=== PATIENT | male | born 1960 | race Caucasian/White ===

== ENCOUNTER → 2020-01-31 13:46 | Outpatient (CLI) | payer BC, SELFPAY ==
--- NOTE | ~2020-01-31 | US_ITS ---
EXAMINATION: US scrotum doppler DATE: 01/31/2020 14:16 INDICATION: Scrotal varices. Bloody in underwear with normal urine. TECHNIQUE: Testicular sonogram utilizing grayscale and Doppler COMPARISON: None. FINDINGS: The right testis measures 4.1 x 2.5 x 3.0 cm. The left testis measures 4.4 x 2.3 x 2.8 cm. Symmetric normal grayscale appearance to both testes. There is normal vascular flow to both testes. The right e pididymis is normal with normal vascular flow. 7 mm anechoic epididymal cyst at the head of the left epididymis. The left epididymis is otherwise normal with normal vascular flow. Bilateral varicoceles, left greater than right with vessels measuring up to 3 mm in maximal diameter on the left and up to 2.5 mm in diameter on the right which augment with Valsalva. Minimal right hydrocele. IMPRESSION: 1. 7 mm left epididymal cyst. Otherwise normal bilateral testes and epididymides. 2. Bilateral varicoceles, left greater than right and minimal right hydrocele. Reviewed, dictated and finalized at location . N MARKETER IMPRESSION: 1. 7 mm left epididymal cyst. Otherwise normal bilateral testes and epididymid es. 2. Bilateral varicoceles, left greater than right and minimal right hydrocele.
== END ==
PROVIDERS: PCP Family Medicine; Visit Provider Physician Assistant
DX: I86.1 Scrotal varices (principal); N50.3 Cyst of epididymis
CPT/HCPCS: 76870; 93976

== ENCOUNTER 2021-08-08 08:30 | Outpatient (CLI) | payer BC, SELFPAY ==
--- NOTE | ~2021-08-08 | XR_ITS ---
EXAMINATION: XR chest 2V DATE: 08/08/2021 09:06 INDICATION: Personal history of COVID-19 pneumonia. TECHNIQUE: Frontal and lateral views of the chest were obtained. COMPARISON: Chest 2 views 12/04/2011 FINDINGS: There is no pneumonia, pleural effusion, or pneumothorax. The heart size is normal. IMPRESSION: 1. Normal lungs. Reviewed, dictated and finalized at location A. IMPRESSION: 1. Normal lungs.
== END 2021-08-08 08:31 | disposition home or self-care (01) ==
LOC: ANHIMG 08:50
PROVIDERS: PCP Family Medicine; Visit Provider Family Medicine
DX: U07.1 COVID-19 (principal)
CPT/HCPCS: 71046

== ENCOUNTER 2023-03-06 01:56 | Day surgery (SDC) | payer OTHER, SELFPAY ==
[2023-02-17 15:48] VITALS: BMI 19.3
--- NOTE | 2023-03-04 08:22 | SUR.PREOP ---
Patient called regarding upcoming procedure. Message left on patient's voicemail regarding appointment times.
--- NOTE | 2023-03-05 09:04 | P.PNAN_ITS ---
Anes - Initial Pre Proc Eval Procedure: Operation Date: 03/06/23 09:00 Proposed Procedures p Screening Colonoscopy - Marcus Murphy MD Date/Time: 03/05/23 09:04 Surgeon: Marcus Murphy MD Pre Op Diagnosis: neoplasm screening Patient Data Age: 62 Gender: M Height: 1.78 m Weight: 61 kg Allergies Allergy/AdvReac Type Severity Reaction Status Date / Time No Known Allergies Allergy Verified 03/06/23 08:10 Home Medications Medication Instructions Recorded Confirmed Type buspirone 5 mg tablet 5 mg PO BID #60 tabs 11/13/22 03/06/23 Rx Patient hx anesthesia problems: none Family hx anesthesia problems: none Results Review: All pre-operative results and documents have been reviewed as part of the pre- operative evaluation. [facility] Past Medical History Medical History (Updated 03/05/23 @ 09:05 by Mendez Walker DO) Anxiety Hyperlipidemia Family History Family History Mother Hypertension Father Family history of lymphoma, Onset Age: 70 Patient's father is Grandparent Diabetes mellitus Social History Social History (Updated 11/13/22 @ 10:33 by Lara Wang) Social History: Smoking status: Never smoker Second hand tobacco smoke exposure: No Alcohol intake: current Drinks per week: 1 Alcohol use details: Socially Substance use: never Substance use type: does not use Lack of Transportation: No Lack of Food: Never True Current Housing: I Have Housing Concerned About Future Housing: No Difficulty Paying Gas/Electric Bills: No Difficulty Paying for Meds: No Currently Unemployed: YES Education: Decline to Answer Difficulty w/ Childcare or Family Care: No Living arrangements: with family Occupation/Education: retired Additional occupation/education comments: 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 Gender identity (if verbalized by the patient): Male Sexual Orientation (if Verbalized by the Patient): Straight or Heterosexual Spiritual care concerns: No Anes - Eval Final PreProcedure Day of Procedure 03/05/23 09:04 Patient weight: normal Heart: regular rate and rhythm Lungs: clear to auscultation and normal air movement Airway: Mallampati scale class II Neurological: alert and oriented Last oral intake: >/= 8 hours ASA classification: II Emergent: no Anesthetic plan: proceed Anesthesia type and monitoring: general GIVS and standard monitoring Results Review: All pre-operative results and documents have been reviewed as part of the pre- operative evaluation. Informed Consent: The patient's anesthetic plan and its attendant risks and benefits were discussed with the patient/family/POA. Questions were solicited and answers provided to the satisfaction of the patient/family/POA.
--- NOTE | 2023-03-05 11:38 | P.HP_ITS ---
History of Present Illness History of Present Illness Consent: Risks, benefits, and alternatives have been discussed and questions answered. Patient agrees to proceed with procedure. Chief complaint: neoplasm screening Narrative: Walter Biggs is a 62 year old male who was referred for colon cancer screening. His last colonoscopy which was 10 years ago was unremarkable. Review of Systems Review of Systems: All systems reviewed & are unremarkable except as noted in HPI and below PMFSH Past Medical History Medical History Anxiety Hyperlipidemia Family History Family History Mother Hypertension Father Family history of lymphoma, Onset Age: 70 Patient's father is Grandparent Diabetes mellitus Social History Social History Social History: Smoking status: Never smoker Second hand tobacco smoke exposure: No Alcohol intake: current Drinks per week: 1 Alcohol use details: Socially Substance use: never Substance use type: does not use Lack of Transportation: No Lack of Food: Never True Current Housing: I Have Housing Concerned About Future Housing: No Difficulty Paying Gas/Electric Bills: No Difficulty Paying for Meds: No Currently Unemployed: YES Education: Decline to Answer Difficulty w/ Childcare or Family Care: No Living arrangements: with family Occupation/Education: retired Additional occupation/education comments: 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 Gender identity (if verbalized by the patient): Male Sexual Orientation (if Verbalized by the Patient): Straight or Heterosexual Spiritual care concerns: No Meds Home Medications and Allergies Home Medications Medication Instructions Recorded Confirmed Type buspirone 5 mg tablet 5 mg PO BID #60 tabs 11/13/22 03/06/23 Rx Allergies Allergy/AdvReac Type Severity Reaction Status Date / Time No Known Allergies Allergy Verified 03/06/23 08:10 Exam Const: General: alert Orientation/consciousness: patient oriented x3 Resp: Auscultation: clear to auscultation bilaterally Cardio: Rhythm: regular rhythm GI: GI Palp: Yes Soft to palpation and No Tenderness to palpation present (GI) Neuro: General: patient oriented x3 Assessment and Plan Assessment and plan (1) Colon cancer screening: Code(s): Z12.11 - Encounter for screening for malignant neoplasm of colon Status: Acute Assessment and Plan: Colonoscopy with possible biopsy or polypectomy or cautery or injection of substances.
[2023-03-06 08:11] VITALS: BP 125/104; PULSE 106; RESP 18; TEMP 36.6; O2SAT 100; BMI 18.3
[2023-03-06] MEDS: LACTATED RINGERS 1,000 ML 150 ML IV CONT (08:19)
[2023-03-06 09:15] VITALS: BP 94/62; PULSE 86; RESP 18; O2SAT 99
[2023-03-06 09:25] VITALS: BP 101/67; PULSE 87; RESP 20; O2SAT 100
[2023-03-06 09:35] VITALS: BP 110/75; PULSE 88; RESP 19; O2SAT 100
== END 2023-03-06 09:48 | disposition home or self-care (01) ==
PROVIDERS: PCP Family Medicine; Visit Provider Internal Medicine Gastroenterology
PROC: 0DJD8ZZ Inspection of Lower Intestinal Tract, Via Natural or Artificial Opening Endoscopic (ICD-10-PCS; CPT 45378; principal; 2023-03-06 09:00)
DX: Z12.11 Encounter for screening for malignant neoplasm of colon (principal); K57.30 Diverticulosis of large intestine without perforation or abscess without bleeding; K64.8 Other hemorrhoids; F41.9 Anxiety disorder, unspecified
CPT/HCPCS: 45378; J2704; J7120

== ENCOUNTER 2024-02-15 15:32 | Outpatient (CLI) | payer OTHER, SELFPAY ==
--- NOTE | ~2024-02-15 | XR_ITS ---
EXAMINATION: XR wrist LT 2V DATE: 02/15/2024 15:41 INDICATION: Unspecified fall, initial encounter. Left wrist pain. TECHNIQUE: 2 views of left wrist were obtained. COMPARISON: None. FINDINGS: Bone alignment is normal. There is a possible nondisplaced avulsion fracture of dorsal pole of triquetrum. There is mild osteoarthritis of first carpometacarpal joint. IMPRESSION: 1. Possible nondisplaced avulsion fracture of dorsal pole of triquetrum. 2. Mild osteoarthritis of first carpometacarpal joint. Reviewed, dictated and finalized at location A. INTERN
== END 2024-02-15 15:33 | disposition home or self-care (01) ==
LOC: MICIMG 15:33
PROVIDERS: PCP Physician Assistant; Visit Provider Physician Assistant
DX: M18.12 Unilateral primary osteoarthritis of first carpometacarpal joint, left hand (principal); M25.532 Pain in left wrist; W19.XXXA Unspecified fall, initial encounter
CPT/HCPCS: 73100

== ENCOUNTER 2024-12-03 10:46 | Emergency (ER) | payer OTHER, SELFPAY ==
--- OUTSIDE RECORDS SUMMARY | 2013-06-29 12:30 | XMS_ITS | Continuity of Care Document ---
Author Organization [facility] Address [address] [place] [address] [place] [phone] Phone Care Team Providers Care Director Of Instruction Name Role Phone Adwoa Stokes DPT Unavailable Unavailable Procedures Procedure Date PT RE-EVALUATION THERAPEUTIC EXERCISES NEUROMUSCULAR RE-ED MANUAL THERAPY HOT/COLD PACK ELECTRIC STIMULATION UNATT THERAPEUTIC EXERCISES NEUROMUSCULAR RE-ED MANUAL THERAPY HOT/COLD PACK THERAPEUTIC EXERCISES NEUROMUSCULAR RE-ED MANUAL THERAPY HOT/COLD PACK THERAPEUTIC EXERCISES NEUROMUSCULAR RE-ED MANUAL THERAPY HOT/COLD PACK ELECTRIC STIMULATION UNA THERAPEUTIC EXERCISES NEUROMUSCULAR RE-ED MANUAL THERAPY HOT/COLD PACK ELECTRIC STIMULATION UNATT THERAPEUTIC EXERCISES NEUROMUSCULAR RE-ED MANUAL THERAPY HOT/COLD PACK ELECTRIC STIMULATION UNATT THERAPEUTIC EXERCISES MANUAL THERAPY HOT/COLD PACK ELECTRIC STIMULATION UNATT THERAPEUTIC EXERCISES NEUROMUSCULAR RE-ED MANUAL THERAPY HOT/COLD PACK THERAPEUTIC EXERCISES NEUROMUSCULAR RE-ED MANUAL THERAPY HOT/COLD PACK ELECTRIC STIMULATION UNATT THERAPEUTIC EXERCISES NEUROMUSCULAR RE-ED MANUAL THERAPY HOT/COLD PACK ELECTRIC STIMULATION UNATT THERAPEUTIC EXERCISES MANUAL THERAPY HOT/COLD PACK ELECTRIC STIMULATION UNATT THERAPEUTIC EXERCISES MANUAL THERAPY HOT/COLD PACK ELECTRIC STIMULATION UNATT THERAPEUTIC EXERCISES NEUROMUSCULAR RE-ED MANUAL THERAPY HOT/COLD PACK ELECTRIC STIMULATION UNATT THERAPEUTIC EXERCISES MANUAL THERAPY HOT/COLD PACK ELECTRIC STIMULATION UNATT PT EVALUATION THERAPEUTIC EXERCISES MANUAL THERAPY HOT/COLD PACK ELECTRIC STIMULATION UNATT Advance Directives Directive Yes / No Effective Date File Name No Information Encounters Encounter Description Practice Location Reason(s) For Visit Diagnoses Date Provider Providers Copied on Encounter [address], [id number], tel:[phone] [place] No Information 4 Stokes Adwoa. [address] [facility], [address], [facility], . tel: [phone] Referring Provider: Dianelys lane, [address] [facility] [address], [facility]. tel:[phone] [address], [place], [id number], tel:[phone] [place] No Information 4 Stokes Adwoa. [address] [facility], [facility] [address], [place], [facility], . tel:[phone] Referring Provider: Dianelys lane, [address] [facility] [address], [place], [facility]. tel:[phone] [address], [place], [place], [id number], tel: [phone] [place] No Information Apr-1 1-201 4 Juany Eaton. [address] [place] [address], [address], [place], [facility], . tel: [phone] Referring Provider: Dianelys lane, [address], [place], [place], [facility]. tel:[phone] [address], [place], [place], [id number], tel:[phone] [place] No Information Apr-0 8-201 4 Stokes Adwoa. [address] [place] [address], [address], [place], [facility], . tel: [phone] Referring Provider: Dianelys lane, [address], [place], [place], [facility]. tel:[phone] [address], [place], [place], [id number], tel:[phone] [place] No Information Apr-0 4-201 4 Juany Eaton. [address] [place] [address], [address], [place], [facility], . tel: [phone] Referring Provider: Dianelys lane, [address], [place], [place], [facility]. tel:[phone], [place], [id number], tel:[phone] [place] No Information Apr-0 2-201 4 Stokes Adwoa. [address] [place] [address], [address], [place], [facility], . tel: [phone] Referring Provider: Dianelys lane, [address], [place], [address]. tel:[phone], [place], [id number], tel:[phone] [place] No Information Mar-2 7-201 4 Juany Angelito. [address] [place] [address], [address], [place], [facility], . tel: [phone] Referring Provider: Dianelys lane, [address], [place], [address]. tel:[phone] [address], [place], [place], [id number], tel:[phone] [place] No Information Mar-2 5-201 4 Juany Angelito. [address] [place] [address], [address], [place], [facility], . tel: [phone] Referring Provider: Dianelys lane, [address], [place], [address]. tel:[phone], [place], [place], [id number], tel:[phone] [place] No Information Mar-1 9-201 4 Stokes Adwoa. [address] [place] [address], [address], [place], [facility], [place]. tel: [phone] Referring Provider: Dianelys lane, [address], [place], [address]. tel:[phone] [address], [place], [place], [id number], tel:[phone] [place] No Information Mar-1 8-201 4 Stokes Adwoa. [address] [place] [address], [address], [place], [facility], . tel: [phone] Referring Provider: Dianelys lane, [address], [place], [address]. tel:[phone] [address], [place], [place], [id number], tel:[phone] [place] No Information Mar-1 7-201 4 Stkoes Adwoa. [address] [place] [address], [address], [place], [facility], [place]. tel:[phone] Referring Provider: Dianelys lane, [address] [place] [address] [address], [place], [address]. tel:[phone], [place], [place], [id number], [place] tel:[phone] [place] No Information Mar-1 4-201 4 Stokes Adwoa. [address] [place] [address], [address], [place], [facility], [place]. tel:[phone] Referring Provider: Dianelys lane, [address] [place] [address] [address], [place], [address]. tel:[phone], [place], [id number], [place] tel:[phone] [place] No Information Mar-1 2-201 4 Stokes Adwoa. [address] [place] [address], [address], [place], [facility], [place]. tel:[phone] Referring Provider: Dianelys lane, [address] [place] [address] [address], [place], [address]. tel:[phone], [place], [place], [id number], [place] tel:[phone] [place] No Information Mar-1 0-201 4 Stokes Adwoa. [address] [place] [address], [address], [place], [facility], [place]. tel:[phone] Referring Provider: Dianelys lane, [address] [place] [address] [address], [place], [address]. tel:[phone], [place], [place], [id number], [place] tel:[phone] [place] Pain in joint involving shoulder region Mar-0 7-201 4 Stokes Adwoa. [address] [place] [address], [address], [place], [address], [place]. tel: [phone] Referring Provider: Ijeoma Ayala [facility] [address], [place], [address]. tel:[phone] Family History Family Member Type Diagnosis Age At Onset No Information Payers Payer name Insurance type Covered democrat ID Authoriza tion(s) No Information Social History Type Description Quantity Date Captured Comments Sex Male Smoking Status No Information Chief Complaint And Reason For Visit No Information Reason For Referral Reason For Referral No Information History Of Present Illness Encounter Date Complaint History Of Prese nt Illness No Information Functional Status Date Functional Assessmen t No Information Instructions Date Instruction Additional Infor mation No Information Assessments Type Assessment Date No Information Patient Care Teams Name Effective Dates (start - stop) Status Members No Information
--- NOTE | ~2024-12-03 | CT_ITS ---
EXAMINATION: CT abdomen pelvis wo trev, 12/03/2024 14:15 CDT HISTORY: Bladder stone, hematuria, painful urination, hx stones COMPARISON: No comparisons available. TECHNIQUE: CT scan of the abdomen and pelvis was performed without IV contrast. One or more of the following dose reduction techniques were used: automated exposure control, adjustment of the mA and/or kV according to patient size, use of iterative reconstruction technique. Unless otherwise stated, incidental findings do not require dedicated follow up imaging FINDINGS: CT abdomen: LUNG BASES: The lung bases are clear. The visualized portions of the heart and pericardium are unremarkable. LIVER: Right lobe liver simple cyst 1 x 1 cm. SPLEEN: Unremarkable, no splenomegaly. KIDNEYS: Right Kidney: Right kidney multiple renal calculi the largest mid pole 2 mm, no hydronephrosis or hydroureter. Left Kidney: Left kidney multiple renal calculi the largest superior pole 3 mm, no hydronephrosis or hydroureter. ADRENAL GLANDS: Unremarkable. PANCREAS: Associated with the posterior body of the pancreas there is a cystic lesion measuring 2 x 2 cm incompletely evaluated, this is difficult to delineate from the adjacent retroperitoneum. GALLBLADDER/BILIARY: Unremarkable. No biliary dilatation. STOMACH AND ESOPHAGUS: Visualized stomach and esophagus within normal limits. BOWEL/MESENTERY: Moderate fecal content. No colitis or diverticulitis. Appendix not identified. Mesentery normal. Small bowel normal. ADENOPATHY/RETROPERITONEUM: No lymphadenopathy. AORTA/VASCULATURE: Normal caliber aorta. FREE FLUID OR FREE AIR: No free fluid.. CT pelvis: SOLID ORGANS/REPRODUCTIVE: The prostate is enlarged, correlate with PSA. BLADDER: Within normal limits. OSSEOUS STRUCTURES: Right iliac bone subcentimeter lytic lesion is noted measuring 7 x 8 mm too small to characterize of doubtful clinical consequence in the absence of previous neoplasm. OVERLYING SOFT TISSUES: Unremarkable. IMPRESSION: 1. No acute intra-abdominal process. Bilateral renal calculi however there is no gross bladder calculus identified. 2. Probable cystic lesion in the pancreas incompletely evaluated. Cystic pancreatic neoplasm is not excluded. Contrast-enhanced MRI recommended Reviewed, dictated and finalized at location A. IMPRESSION: 1. No acute intra-abdominal process. Bilateral renal calculi however there is n o gross bladder calculus identified. 2. Probable cystic lesion in the pancreas incompletely evaluated. Cystic pancre atic neoplasm is not excluded. Contrast-enhanced MRI recommended
[2024-12-03 10:48] VITALS: BP 140/75; PULSE 79; RESP 17; TEMP 36.7; O2SAT 100
[2024-12-03 12:50] LABS: Add Urine Microscopic? YES; Appearance Urine Clear (Clear); Glucose Urine UA Negative (Negative); Leukocyte Esterase Ur 1+ LEU/UL (Negative); Need Manual Microscopic Reviewed; Nitrate Urine Negative (Negative); Non Pathogenic Casts 0-2; Specific Grav Ur 1.015 (1.001-1.035)
[2024-12-03 13:22] VITALS: BP 121/59; PULSE 82; RESP 15; TEMP 36.6; O2SAT 99
--- NOTE | 2024-12-03 13:56 | ED_ITS ---
HPI - Male Genitourinary General Chief complaint: Urogenital-Male Stated complaint: bladder stone Time Seen by Provider: 12/03/24 13:56 Source: patient Related Data Home Medications ?Medication ?Instructions ?Recorded ?Confirmed ?Last Taken ?Type auhjwkdw-ettubpdn-vgqyz acid 400 tablet PO 02/17/24 Unknown History mcg-vit K 20 mcg-lycop 300 mcg tablet (One-A-Day Men's Multivitamin) Allergies Allergy/AdvReac Type Severity Reaction Status Date / Time No Known Allergies Allergy Verified 12/03/24 10:50 [facility] Past Medical History Medical History Anxiety Hyperlipidemia Family History Family History Mother Hypertension Cerebrovascular accident Father Family history of lymphoma, Onset Age: 70 Patient's father is Grandparent Diabetes mellitus Social History Social History Social History: Smoking status: Never smoker Second hand tobacco smoke exposure: No Alcohol intake: current Alcohol use details: Socially Substance use: never Substance use type: does not use Do You Feel Safe in your Home?: Yes Lack of Transportation: No Lack of Food: Never True Current Housing: Decline to Answer Concerned About Future Housing: Decline to Answer Difficulty Paying Gas/Electric Bills: Decline to Answer Difficulty Paying for Meds: Decline to Answer Currently Unemployed: No Education: Don't Know Difficulty w/ Childcare or Family Care: Decline to Answer Living arrangements: with family Occupation/Education: retired Gender identity (if verbalized by the patient): Male Sexual Orientation (if Verbalized by the Patient): Straight or Heterosexual Spiritual care concerns: No Course Vital Signs Vital signs: Vital Signs Temperature 36.7 C 12/03/24 10:48 Pulse Rate 79 12/03/24 10:48 Respiratory Rate 17 12/03/24 10:48 Blood Pressure 140/75 12/03/24 10:48 Pulse Oximetry 100 12/03/24 10:48 Oxygen Delivery Room Air 12/03/24 10:48 Temperature 36.6 C 12/03/24 13:22 Pulse Rate 82 12/03/24 13:22 Respiratory Rate 15 12/03/24 13:22 Blood Pressure 121/59 L 12/03/24 13:22 Pulse Oximetry 99 12/03/24 13:22 Oxygen Delivery Room Air 12/03/24 10:48 MDM - Male Genitourinary MDM Narrative Medical decision making narrative: PATIENT CAME WITH BLOOD IN THE URINE, UNABLE TO VOID COMPLETELY VITAL SIGNS ARE STABLE PHYSICAL EXAMINATION IS UNREMARKABLE DIFFERENTIAL DIAGNOSIS URINARY TRACT INFECTION, KIDNEY STONE, HEMATURIA OF UNKNOWN ETIOLOGY BLOOD WORKUP TODAY INCLUDES CBC, CMP SHOWED NO SIGNIFICANT ABNORMALITY URINALYSIS SHOWED 1+ LEUKOCYTE ESTRACE, 2+ BLOOD CT ABDOMEN PELVIS WITHOUT CONTRAST SHOWED NO KIDNEY STONE, CYSTIC PANCREATIC NEOPLASM IS NOT EXCLUDED. CONTRAST ENHANCED MRI IS RECOMMENDED DIAGNOSIS URINARY TRACT INFECTION DISCHARGED ON CIPRO, FOLLOW-UP WITH UROLOGIST. Differential Diagnosis Differential diagnosis: Likely other ( ABOVE) Medical Records Attestation: I reviewed the patient's medical records. Lab Data Attestation: I reviewed the patient's lab results. 12/03/24 14:12 12/03/24 14:12 Labs: Lab Results 12/03/24 12/03/24 Range/Units 12:29 14:12 WBC 4.9 (4.5-10.0) K/mm3 RBC 4.25 L (4.6-6.20) M/mm3 Hgb 14.3 (14.0-18.0) g/dL Hct 41.5 L (42.0-52.0) % MCV 97.6 (80-100) fl MCH 33.6 (26-34) pg MCHC 34.5 (32-36) g/dl RDW 11.8 (11.5-14.5) % Plt Count 236 (150-375) k/mm3 MPV 9.5 (7.4-10.4) fl Immature Gran % (Auto) 0.2 (0-0.5) % Neut % (Auto) 66.4 (45.5-73.1) % Lymph % (Auto) 25.1 (18.3-44.2) % [place] % (Auto) 7.3 (2.6-8.5) % Eos % (Auto) 0.2 (0-4.4) % Baso % (Auto) 0.8 (0.2-1.2) % Lymph # (Auto) 1.24 (0.9-3.2) K/mm3 [place] # (Auto) 0.4 (0.1-0.6) K/mm3 Eos # (Auto) 0.0 (0-0.3) K/mm3 Baso # (Auto) 0.0 (0.0-0.1) K/mm3 Abs Immat Gran (auto) 0.01 (0.00-0.031) K/mm3 Absolute Neuts (auto) 3.3 (1.3-6.7) K/mm3 Absolute Nucleated RBC 0.000 (0.0-0.012) K/mm3 Nucleated RBC % 0.0 (0.0-0.2) % Sodium 138 (137-145) mmol/L Potassium 4.1 (3.4-5.0) mmol/L Chloride 103 (98-107) mmol/L Carbon Dioxide 27 (22-30) mmol/L Anion Gap 8 (4-12) mmol/L BUN 18 (9-20) mg/dL Creatinine 0.84 (0.7-1.3) mg/dL Estim Creat Clear Calc 64 ml/min Estimated GFR > 60 (59 - ) Glucose 113 H (65-110) mg/dL Calcium 9.5 (8.4-10.2) mg/dL Total Bilirubin 0.6 (0.2-1.3) mg/dL AST 37 (17-59) U/L ALT 25 (6-50) U/L Alkaline Phosphatase 50 (38-126) U/L Total Protein 7.9 (6.3-8.2) g/dL Albumin 4.5 (3.5-5.1) g/dL Urine Color Yellow (Yellow) Urine Appearance Clear (Clear) Urine pH 8.0 (5.0-9.0) Ur Specific [place] 1.015 (1.001-1.035) Urine Protein Negative (Negative) mg/dL Urine Glucose (UA) Negative (Negative) mg/dL Urine Ketones Trace H (Negative) mg/dL Ur Blood (Man) 2+ H (Negative) Urine Nitrate Negative (Negative) Urine Bilirubin Negative (Negative) Urine Urobilinogen 1.0 (<2.0) mg/dL Add Ur Microanalysis Reviewed Leukocyte Esterase Rfl 1+ H (Negative) [place]/UL Urine RBC >100 H (0-2) /hpf Urine WBC 0-5 (0-3) /hpf Ur Squamous Epith Cells None seen (Few) /hpf Urine Bacteria None seen /hpf Urine Casts 0-2 Imaging Data Radiologist's impression: Impressions Abdomen/Pelvis CT 12/03/24 14:49 IMPRESSION: 1. No acute intra-abdominal process. Bilateral renal calculi however there is no gross bladder calculus identified. 2. Probable cystic lesion in the pancreas incompletely evaluated. Cystic pancreatic neoplasm is not excluded. Contrast-enhanced MRI recommended Critical Care Time Critical Care Time Critical Care Time: No Discharge Plan Discharge Clinical Impression: Urinary tract infection, Pancreatic cyst Patient Disposition: Home Condition: Stable Instructions: Antibiotic Form, Urinary Tract Infection in Men (ED) Additional Instructions: RETURN IF SYMPTOMS ARE WORSENING , CALL YOUR UROLOGIST FOR APPOINTMENT, TAKE TYLENOL, IBUPROFEN NEEDED FOR ACHES AND PAIN, CONTINUE HOME MEDICATIONS. CT SCAN OF THE ABDOMEN AND PELVIS TODAY SHOWED THAT HE HAVE A PANCREATIC CYST. TUMOR IS NOT EXCLUDED. CONTRAST ENHANCED MRI RECOMMENDED. PLEASE CALL YOUR FAMILY PHYSICIAN SOON POSSIBLE FOR FURTHER EVALUATION Patient Language: Welsh Prescriptions: New ciprofloxacin HCl [Cipro] 500 mg tablet 500 mg PO Q12H Qty: 14 0RF phenazopyridine [Pyridium] 200 mg tablet 200 mg PO TID PRN (Reason: DYSURIA) Qty: 6 0RF No Action One-A-Day Men's Multivitamin 400-20-300 mcg tablet PO Follow-up/Referrals: Mykel Conte MD [Primary Care Provider, Family Practice]
--- OUTSIDE RECORDS SUMMARY | 2024-12-03 14:05 | XMS_ITS | Clinical Summary ---
Author Organization [facility] Address [address] [place] [id number] Care Team Providers Care Professor Of Genetics Name Role Phone Dianelys Hartman MD Primary Care Provider Allergies No known active allergies Medications No known medications Active Problems No known active problems Medical History Medical History Date Comments Erectile dysfunction Nephrolithiasis Anxiety Family History Medical History Relation Name Comments Cancer Father Atrial fibrillation Mother Hypertension Mother Relation Name Status Comments Father Mother Social History Tobacco Use Types Packs/Day Years Used Date Smoking Tobacco: Never Smokeless Tobacco: Never AUDIT-C Answer Date Recorded Q1: How often do you have a drink containing alc ohol? Never 03/25/2021 Average Number of Drinks Not on file 022 Frequency of Binge Drinking Not on file 03/16 Personal Safety Answer Date Recorded Getting School Help Needed Not on file 05/29 Sex and Gender Information Value Date Recorded Sex Assigned at Not on file Legal Sex Male 9:21 PM [employer] DIRECT[employer] Gender Identity Male 01/29/2021 8:52 PM [facility] DIRECTOR Sexual Orientation Straight 01/29/2021 8: 52 PM [facility] DIRECTOR Obstetrics History Plan of Treatment Not on file Insurance [employer] [place] PPO [place] Care Teams Professor Of Genetics Relationship Specialty Start Date End Date Dianelys Hartman MD [address] [facility] [address] [place] [address] PCP - General Family Medicine 01/28/21
[2024-12-03 14:26] LABS: Hematocrit 41.5 % (42.0-52.0); Hemoglobin 14.3 g/dL (14.0-18.0); Immature Granulocyte Percent A 0.2 % (0-0.5); Lymphocytes Absolute Auto 1.24 K/mm3 (0.9-3.2); Mean Corpuscular HGB Conc 34.5 g/dl (32-36); Mean Corpuscular Hemoglobin 33.6 pg (26-34); Mean Corpuscular Volume 97.6 fl (80-100); Nucleated Red Blood Cells Absolute Auto 0.000 K/mm3 (0.0-0.012); Nucleated Red Blood Cells Perc 0.0 % (0.0-0.2); Platelet Count Result 236 k/mm3 (150-375); Red Blood Count 4.25 M/mm3 (4.6-6.20); White Blood Count 4.9 K/mm3 (4.5-10.0)
[2024-12-03 14:37] LABS: Alanine Aminotransferase 25 U/L (6-50); Albumin Level 4.5 g/dL (3.5-5.1); Alkaline Phosphatase 50 U/L (38-126); Anion Gap 8 mmol/L (4-12); Aspartate Amino Transferase 37 U/L (17-59); Bilirubin,Total 0.6 mg/dL (0.2-1.3); Blood Urea Nitrogen 18 mg/dL (9-20); Calcium 9.5 mg/dL (8.4-10.2); Carbon Dioxide 27 mmol/L (22-30); Chloride 103 mmol/L (98-107); Estimated CRCL calculation 64 ml/min; Estimated Glomerular Filt Rate > 60; Glucose 113 mg/dL (65-110); Potassium 4.1 mmol/L (3.4-5.0); Sodium 138 mmol/L (137-145); Total Protein 7.9 g/dL (6.3-8.2)
== END 2024-12-03 16:04 | disposition home or self-care (01) ==
PROVIDERS: Emergency Provider Emergency Medicine; PCP Family Medicine
DX: N39.0 Urinary tract infection, site not specified (principal); K86.2 Cyst of pancreas; E78.5 Hyperlipidemia, unspecified; F41.9 Anxiety disorder, unspecified; Z87.442 Personal history of urinary calculi
CPT/HCPCS: 36415; 74176; 80053; 81001; 85025; 87086; 99284